=== PATIENT | male | born 1955 | race Caucasian/White ===

== ENCOUNTER → 2018-07-07 05:46 | Day surgery (SDC) | payer OTHER ==
--- NOTE | 2018-07-02 15:38 | HP ---
CC: Dr. Oneal; Dr. Jamel Barragan* PREOPERATIVE HISTORY AND PHYSICAL: DATE OF ADMISSION: This patient is scheduled for same-day surgery admission by Dr. Oneal on 07/07/18. DATE OF PREOPERATIVE HISTORY AND PHYSICAL EXAMINATION: 07/02/18. ATTENDING SURGEON: Dr. Devon Oneal* (dictated by Selena Pete NP). CHIEF COMPLAINT: Bilateral inguinal hernias and umbilical hernia. HISTORY OF PRESENT ILLNESS: The patient is a 62-year-old male, who presented to [facility] in March 2018 and was seen [address] Dr[address] Oneal for evaluation of a left groin bulge that the patient stated has been present for many months, but was enlarging. He previously had a laparoscopic right inguinal hernia repair and umbilical hernia repair approximately 20 years ago and states that the laparoscopic repair failed and he had an open right inguinal hernia repair approximately 21 years ago. He is an active hiker and backpacker; he denies any significant pain or any signs or symptoms to suggest incarceration or strangulation. The patient has been able to reduce the left groin bulge. He denies any chronic constipation or dysuria. Dr. Oneal examined the patient and notes a moderate-sized reducible left inguinal hernia as well as a small reducible recurrent right inguinal hernia and a small reducible umbilical hernia. Dr. Oneal reviewed the findings with the patient and offered to repair all 3 of the hernias and recommended laparoscopic bilateral inguinal hernia repair with mesh and umbilical hernia repair. Dr. Oneal described the nature of the surgical procedure, the relevant risks and benefits, and today I reviewed the typical postoperative care and recovery. The patient has had a chance to ask questions and will also be talking with Dr. Oneal later today for additional questions. He stated that he understood the information imparted today for postoperative care. He will sign surgical consent on the day of surgery. PAST MEDICAL HISTORY: Generally healthy, no acute or chronic conditions. PAST SURGICAL HISTORY: Laparoscopic right inguinal hernia repair with mesh and umbilical hernia repair of the same setting in 1995 and failure of the laparoscopic right inguinal hernia repair resulted in an open right inguinal hernia repair 1 year later. He has also had repair of deviated septum. MEDICATIONS: 1. Vitamin B12 100 mcg 2 tablets daily. 2. Vitamin D3 1000 International Units 2 tablets daily. 3. Naproxen 500 mg b.i.d. p.r.n. ALLERGIES: No known drug allergies. FAMILY HISTORY: Father had a history of hypertension and some type of bleeding tendency. No known anesthesia complications in the family. 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 He has never been a smoker. He drinks alcohol perhaps once a week. He denies use of other substances. REVIEW OF SYSTEMS: Constitutional: No fevers, chills, excessive fatigue, or weight loss. He states that he has very good energy and very active. General: No history of deep vein thrombosis or pulmonary embolism. No previous anesthesia complications. No history of MRSA infections. No bleeding tendencies and has never received a blood transfusion. Endocrine: No diabetes or thyroid disease. Respiratory: No dyspnea on exertion. No chronic cough. Cardiovascular: No anginal chest pain or palpitations. Gastrointestinal: No nausea, vomiting, diarrhea, GI bleeding or constipation, or change in bowel habits. Genitourinary: No dysuria. Musculoskeletal: Normal strength and tone. Integumentary: No new skin changes or chronic rashes. Neurologic: No headaches, blurred vision, or areas of focal weakness or numbness. PHYSICAL EXAMINATION GENERAL SURVEY: The patient is a 62-year-old male, well-developed, well- nourished, in no acute distress. VITAL SIGNS: Height 75 inches, weight 235 pounds, body mass index 29.4, blood pressure 120/64, pulse 66 and regular, respiratory rate 16, temperature 97.9 tympanic. HEENT: Benign. NECK: Supple. No cervical lymphadenopathy. No thyromegaly. BACK: No CVA tenderness. LUNGS: Breath sounds bilaterally clear and equal. HEART: Regular rate and rhythm. No murmurs or rubs appreciated. ABDOMEN: Active bowel sounds, soft, nondistended, nontender throughout. Obvious small reducible umbilical hernia. Well-healed surgical scars. No obvious masses or organomegaly. Inguinal exam was done by Dr. Oneal and a moderate-sized reducible left inguinal hernia was noted and a small recurrent right inguinal hernia was noted. GENITALIA: Appeared within normal limits. EXTREMITIES: Warm without edema or skin ulceration. RECTAL: Deferred. NEUROLOGIC: Alert and oriented x3, steady gait. SKIN: Warm, dry, intact. IMPRESSION: 1. Left inguinal hernia. 2. Recurrent right inguinal hernia. 3. Umbilical hernia. PLAN: Same-day surgery admission to Dr. Oneal's service on 07/07/18, for laparoscopic bilateral inguinal hernia repair with mesh and possible umbilical hernia repair. CARYL PETE, GLUE SPREADER [id number]/[facility] #: [id number] CRISTIANO
[~2018-07-07 05:46] MED LIST: Acetaminophen TAB* 325 MG ONE; Acetaminophen TAB* 325 MG PO ONE; Acetaminophen TAB* 325 MG PO PRN; Buffered Lidocaine 1% SYRIN* 1 ML/SYRINGE INTRADERM ONE; Bupivacaine 0.5%* 50 ML VIAL ONE; Dexamethasone IV* 4 MG/ML 1 ML (4 MG) ONE; DiMENhydriNATE IV* 50 MG/ML VIAL IV PUSH PRN; EPHEDrine (Pressors)* 50 MG/ML VIAL ONE; Famotidine IV* 10 MG/ML 2 ML (20 mg) ONE; Gabapentin CAP(*) 300 MG ONE; Gabapentin CAP(*) 300 MG PO ONE; Glycopyrrolate IV* 0.2 MG/ML 1 ML VIAL ONE; HYDROcodone/ACETAMIN 5-325 MG* 1 TAB PO PRN; Ketorolac INJ* 30 MG/ML 1 ML VIAL ONE; Lactated Ringers 1000 ML Bag* 1,000 ML IV SCH; Lidocaine 2% PF * 5 ML VIAL ONE; Midazolam* 1 MG/ML 2 ML VIAL (2 MG) ONE; Naloxone* 0.4 MG/ML 1 ML VIAL IV PRN; Neostigmine Methylsulfate* 1 MG/ML 10 ML VIAL (1 mg/ml) ONE; Ondansetron INJ* 2 MG/ML VIAL IV PRN; Ondansetron INJ* 2 MG/ML VIAL ONE; PROCHLORPERAZINE INJ 5 MG/ML 2 ML VIAL IV PRN; Propofol* 10 MG/ML 20 ML BTL ONE; Rocuronium* 10 MG/ML VIAL ONE; ceFAZolin 2 GM PREMIX in ORs 2 GM/50 ML BAG IVPB ONE; diPHENhydraMINE IV* 50 MG/ML 1 ml VIAL (BENADRYL) IV PRN; fentaNYL* 50 MCG/ML 2 ML VIAL (100 MCG VIAL) IV PRN; fentaNYL* 50 MCG/ML 2 ML VIAL (100 MCG VIAL) ONE
[2018-07-07 11:12] VITALS: BP 130/73
--- NOTE | 2018-07-07 12:41 | OP ---
DATE OF OPERATION: 07/07/18 - [facility] DATE OF : 59 SURGEON: Devon Oneal MD. SPECIALIST ICU: Bartolo Javier MD. PRE-OP DIAGNOSES: Left inguinal hernia, possible right inguinal hernia, umbilical hernia. POST-OP DIAGNOSES: Left inguinal hernia, umbilical hernia. OPERATIVE PROCEDURE: Laparoscopic repair of left inguinal hernia, open umbilical hernia repair. INDICATIONS FOR PROCEDURE: Hernia risks including, but not limited to bleeding , infection; injury to intraabdominal contents, pelvic, nerves and vessels; recurrence of the hernia; persistent pain were discussed with the patient who seemed to understand and wished to proceed with surgery and all questions were answered. DESCRIPTION OF PROCEDURE: The patient was taken to the operating room and placed supine. Preoperative antibiotics were given. After the successful induction of general endotracheal anesthesia, Gray catheter was placed. The abdomen was prepped and draped in sterile fashion. A time-out was performed, indicating correct procedure and correct patient. A midline incision was made near the umbilicus and carried down through the subcutaneous tissue exposing the left rectus sheath, which was opened and the rectus muscle was retracted gently laterally opening the preperitoneal space. A balloon was placed into the space. The catheter was advanced down towards the pubis. The camera was placed and the balloon was insufflated revealing open left side. The right hemipelvis would not open secondary to prior laparoscopic surgery there. Two trocars were placed between the pubis and the umbilicus under direct visualization in the camera. Numerous adhesions were noted. Mesh from his prior right side repair had traversed the midline and over towards the left side. I was able to take this down near the epigastric vessels. Cord and cord structures were then aside and a cord lipoma was gently dissected from the cord. The peritoneum below this was noted and gently swept posteriorly. Dissection was performed laterally creating a space to place a mesh. A piece of ProGrip mesh was then cut and fashioned to place over the defect area, under the previous mesh and under the peritoneum and covered the defect inferiorly, laterally, superiorly, and medially. This was placed and position appeared good. There was some mild oozing during the case, blood but by the end of the case, there was no active oozing or bleeding. Pneumoperitoneum was released from the site. Incision was slightly extended underneath the skin exposing the umbilical hernia, small amount of fat was reduced back underneath the fascia. The fascia was closed with a running 0 Vicryl suture. The fascia was then closed over the rectus with the same suture. The wound was irrigated. Skin was closed with Monocryl and glue. Trocars obviously had been removed prior to closure. The patient tolerated the procedure well. He was extubated and taken to Recovery in stable condition. [id number] #: [id number] MTDOlaf
== END | disposition home or self-care (01) ==
LOC: OR 05:46
PROVIDERS: ATTEND Surgery
DX: K40.90 Unilateral inguinal hernia, without obstruction or gangrene, not specified as recurrent (principal); K42.9 Umbilical hernia without obstruction or gangrene; G60.8 Other hereditary and idiopathic neuropathies; M19.90 Unspecified osteoarthritis, unspecified site
CPT/HCPCS: A9270-GY; C1781; J0690; J1100; J1885; J2250; J2405; J2704; J2710; J3010; J3490